=== PATIENT | male | born 1990 | race Caucasian/White ===

== ENCOUNTER 2018-05-08 00:22 | Emergency (ER) | payer OTHER | END 2018-05-08 03:44 | disposition other institution (70) | LOC: ED 00:22 | DX: Z02.89 Encounter for other administrative examinations (principal) ==

== ENCOUNTER 2018-05-08 00:22 | Emergency (ER) | payer BC ==
[~2018-05-08] VITALS: Ht 167.6 cm; Wt 80.3 kg
[2018-05-08 00:42] VITALS: Ht 167.6 cm; Wt 80.3 kg
[2018-05-08 01:25] LABS: RED CELL DISTRIBUTION WIDTH 12.9 % (11.5-14.5)
[2018-05-08 01:30] LABS: PLATELET COUNT 413 x10^3mcL (130-400)
[2018-05-08 01:40] LABS: CALCIUM 8.7 mg/dL (8.5-10.1); CARBON DIOXIDE 25.7 mmol/L (21-32); CHLORIDE SERUM 110 mmol/L (98-107); GFR1 > 60 mL/min; GLUCOSE SERUM 119 mg/dL (74-106); SODIUM SERUM 146 mmol/L (136-145)
[2018-05-08 01:53] LABS: ALKALINE PHOSPHATASE 72 U/L (46-116); ALT/SGPT 17 U/L (16-63); AST/SGOT 12 U/L (15-37); BILIRUBIN TOTAL 0.31 mg/dL (0.20-1.00); FREE T4 1.08 ng/dL (0.76-1.46); TOTAL PROTEIN, SERUM 8.7 g/dL (6.4-8.2)
[2018-05-08 02:48] LABS: UA SPECIFIC GRAVITY <=1.005 (1.005-1.035); microscopic required? YES; urine erythrocyte TRACE (NEGATIVE)
[2018-05-08 03:02] VITALS: BP 123/63
[2018-05-08 03:17] LABS: BAND NEUTROPHIL 4 % (0-10); METAMYELOCTE 1 % (0-2); MONOCYTE 6 % (0-7); SEGMENTED NEUTROPHILS 77 % (37-75)
[2018-05-08 03:18] LABS: rbc morphology (normal/abnorm) NORMAL (NORMAL)
[2018-05-08 03:19] LABS: PLATELET MORPHOLOGY PLATELETS NORMAL
[2018-05-08 03:33] LABS: AMPHETAMINE QUAL UR NONE DETECTED (See below)
== END 2018-05-08 03:44 | disposition left against medical advice (07) ==
LOC: ED 00:22
PROVIDERS: Emergency Medicine
DX: F10.129 Alcohol abuse with intoxication, unspecified (principal); V49.88XA Car occupant (driver) (passenger) injured in other specified transport accidents, initial encounter; Y93.89 Activity, other specified; Y92.89 Other specified places as the place of occurrence of the external cause; Y99.8 Other external cause status
CPT/HCPCS: 84439; 90715; G0480; J7030